=== PATIENT | male | born 1980 | race Hispanic/Latino ===

== ENCOUNTER 2018-09-12 07:44 | Emergency (ER) | payer SELFPAY ==
[~2018-09-12] VITALS: Ht 172.7 cm; Wt 77.1 kg
[2018-09-12] MEDS ORDERED: ACETAMINOPHEN 325 MG TAB PO ONE (08:30)
[2018-09-12 09:11] VITALS: BP 112/64
[2018-09-12] MEDS ORDERED: IBUPROFEN 600 MG TAB ONE (09:22)
[2018-09-12] MEDS ORDERED: IBUPROFEN 600 MG TAB PO STA (09:25)
[2018-09-12] MEDS ORDERED: IBUPROFEN 400 MG TAB PO ONE (09:30)
== END 2018-09-12 10:15 | disposition home or self-care (01) ==
LOC: ER 07:44
DX: J02.0 Streptococcal pharyngitis (principal); Z87.891 Personal history of nicotine dependence
CPT/HCPCS: 87400; 99283